=== PATIENT | male | born 1990 | race Caucasian/White ===

== ENCOUNTER 2020-03-22 03:00 | Emergency (ER) | payer OTHER ==
[2020-03-22] MEDS ORDERED: ZIPRASIDONE 20 MG VIAL IM STA (03:32)
[2020-03-22] MEDS ORDERED: LORazepam 2 MG/ML INJ IM STA (03:32)
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
[2020-03-22 13:13] LABS: HCT 44.2 % (39.0-53.0); HGB 14.5 gm/dL (13.0-17.5); MCH 30.7 pg (25.0-35.0); MCHC 32.8 g/dL (31.0-37.0); MCV 93.8 fL (80.0-100.0); Mean Platelet Volume 8.3; Platelet Count 196 k/uL (150-450); RBC 4.72 m/uL (4.30-5.90); RDW 12.4 % (11.5-15.5); WBC 5.5 k/uL (3.8-10.6)
[2020-03-22 13:25] LABS: ALT 69 U/L (4-49); AST 70 U/L (17-59); African American GFR (CKD) >90 (>60 ml/min/1.73 sqM); Albumin 4.4 g/dL (3.5-5.0); Alkaline Phosphatase 43 U/L (38-126); Anion Gap 9 mmol/L; Blood Urea Nitrogen 11 mg/dL (9-20); Calcium 9.2 mg/dL (8.4-10.2); Carbon Dioxide 26 mmol/L (22-30); Chloride 108 mmol/L (98-107); Glucose 83 mg/dL (74-99); Non-African American GFR(CKD) >90 (>60 ml/min/1.73 sqM); Potassium 4.3 mmol/L (3.5-5.1); Sodium 143 mmol/L (137-145); Total Bilirubin 0.6 mg/dL (0.2-1.3); Total Protein 7.1 g/dL (6.3-8.2)
[2020-03-23 08:13] VITALS: RESP 18
[2020-03-23 15:51] VITALS: BP 139/89; PULSE 72; TEMP 98.8
== END 2020-03-23 16:17 | disposition other institution (70) ==
LOC: EC 03:00
DX: F10.129 Alcohol abuse with intoxication, unspecified (principal); F32.9 Major depressive disorder, single episode, unspecified; R47.1 Dysarthria and anarthria; H11.32 Conjunctival hemorrhage, left eye; T74.11XA Adult physical abuse, confirmed, initial encounter; Y07.410 Brother, perpetrator of maltreatment and neglect; Y04.0XXA Assault by unarmed brawl or fight, initial encounter
CPT/HCPCS: 82075; 36415; 80053; 85027; 70486; 96372 ×2; 99285; J2060; J3486